=== PATIENT | female | born 1985 | race Caucasian/White ===

== ENCOUNTER 2019-12-01 17:55 | Emergency (ER) | payer OTHER ==
[2019-12-01] MEDS ORDERED: ONDANSETRON 4 MG/2 ML VIAL IVPUSH ONE (18:03)
[2019-12-01] MEDS ORDERED: SODIUM CHLORIDE 1,000 ML IV STA (18:03)
--- NOTE | 2019-12-01 18:03 | PDOC ---
Rapid Medical Evaluation Time Seen by Provider: 12/01/19 18:01 Medical Evaluation: 12/01/19 18:01 CC: vomiting and diarrhea. Denies blood in vomit or stool. PE: Abd SNTND. Orders: labs, urine Patient will proceed to ED for evaluation. Discharge Disposition - Diagnosis Vomiting and diarrhea - Referrals - Patient Instructions - Post Discharge Activity
[2019-12-01 18:26] VITALS: BP 144/92; PULSE 86; TEMP 97.8; BMI 29.9
[2019-12-01 18:55] LABS: BASO % 0.3 % (0-2.0); HEMATOCRIT 45.6 % (32.4-45.2); HEMOGLOBIN 15.3 GM/dL (10.7-15.3); LYMPH % 6.6 % (8-40); MCH 32.6 pg (25.7-33.7); MCHC 33.6 g/dl (32.0-36.0); MEAN CELL VOLUME 97.1 fl (80-96); MEAN PLT VOLUME 9.3 fl (7.5-11.1); NEUT % 90.1 % (42.8-82.8); PLATELET COUNT 259 K/MM3 (134-434); RBC 4.69 M/mm3 (3.60-5.2); RDW 14.4 % (11.6-15.6); WHITE BLOOD COUNT 8.3 K/mm3 (4.0-10.0)
[2019-12-01 19:20] LABS: EPI CELLS 7.7 /HPF (0-5/HPF); HYALINE CASTS 26 /lpf (0-8); PH,URINE 5.5 (5.0-8.0); URINE APPEARANCE CLOUDY; URINE BACTERIA 341.2 /hpf (NEGATIVE); URINE BILIRUBIN NEGATIVE (NEGATIVE); URINE COLOR YELLOW; URINE GLUCOSE (UA) NEGATIVE (NEGATIVE); URINE KETONE 2+ (NEGATIVE); URINE LEUK ESTERASE NEGATIVE (NEGATIVE); URINE NITRITE NEGATIVE (NEGATIVE); URINE PROTEIN TRACE (NEGATIVE); URINE RBC 3 /hpf (0-4); URINE UROBILINOGEN 0.2 mg/dL (0.2-1.0); URINE WBC 5 /hpf (0-5)
[2019-12-01 19:24] LABS: ALBUMIN 4.3 g/dl (3.4-5.0); BILIRUBIN,TOTAL 0.5 mg/dL (0.2-1); CALCIUM 9.3 mg/dL (8.5-10.1); CREATININE 0.9 mg/dL (0.55-1.3); POTASSIUM 3.7 mmol/L (3.5-5.1); TOT PROT 8.2 g/dl (6.4-8.2)
--- NOTE | 2019-12-01 19:30 | PDOC ---
Attending Attestation - Resident Resident Name: Melecio Sanders - ED Attending Attestation I have performed the following: I have examined & evaluated the patient, The case was reviewed & discussed with the resident, I agree w/resident's findings & plan - HPI HPI: 12/01/19 20:22 Pt ate a slice of pizza last night and states that ever since she has had vomiting and diarrhea. She has gassy abd pain. She has no fever. 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 - Physicial Exam PE: 12/01/19 20:26 No rebound and no guarding; no flank pain; no fever; no suprapubic pain; no hematuria, no hematochezia + increased gassy bowel sounds in all quadrants Pt has normal HEENT heart normal lungs clear ext normal neuro exam normal - Medical Decision Making 12/01/19 19:36 CBC chem normal; she is not ; she has + bacteria, but very few WBC and RBC and no leukocites and no dysuria. Urine will be sent for STD testing 12/01/19 20:39 Pt has ketones in the urine and she will have 2L NSS and then will be reevaluated 12/02/19 00:13 Feeling better and stable for d/c home
[2019-12-01] MEDS ORDERED: SODIUM CHLORIDE 0.9% 500 ML INFUS.BAG IV ONE (19:31)
--- NOTE | 2019-12-01 19:39 | PDOC ---
*Physical Exam - Vital Signs Last Vital Signs Temp Pulse Resp BP Pulse Ox 97.8 F 86 18 144/92 100 12/01/19 18:24 12/01/19 18:24 12/01/19 18:24 12/01/19 18:24 12/01/19 18:24 ED Treatment Course - LABORATORY CBC & Chemistry Diagram: 12/01/19 18:13 12/01/19 18:13 - ADDITIONAL ORDERS Additional order review: Laboratory Results 12/01/19 12/01/19 18:13 18:13 Sodium 137 Potassium 3.7 Chloride 103 Carbon Dioxide 27 Anion Gap 7 L BUN 19.0 H Creatinine 0.9 Est GFR (CKD-EPI)AfAm 96.01 Est GFR (CKD-EPI)NonAf 82.84 Random Glucose 98 Calcium 9.3 Total Bilirubin 0.5 AST 18 ALT 18 Alkaline Phosphatase 126 H Total Protein 8.2 Albumin 4.3 Lipase 114 Urine Color Yellow Urine Appearance Cloudy Urine pH 5.5 Ur Specific [place] 1.030 Urine Protein Trace Urine Glucose (UA) Negative Urine Ketones 2+ H Urine Blood 1+ H Urine Nitrite Negative Urine Bilirubin Negative Urine Urobilinogen 0.2 Ur Leukocyte Esterase Negative Urine WBC (Auto) 5 Urine RBC (Auto) 3 Urine Casts (Auto) 26 U Epithel Cells (Auto) 7.7 Urine Bacteria (Auto) 341.2 12/01/19 18:13 RBC 4.69 MCV 97.1 H MCHC 33.6 RDW 14.4 MPV 9.3 Neutrophils % 90.1 H Lymphocytes % 6.6 L Monocytes % 3.0 L Eosinophils % 0.0 Basophils % 0.3 Medical Decision Making - Medical Decision Making 12/01/19 19:51 34 y/o female with no significant PMHx here w/acute onset of NBNB vomiting and intermittent sharp abdominal pain that radiates from her back to her LLQ. No fevers/chills. LMP was early November. PE significant for mild LLQ TTP w/o peritoneal sign. Frontal diagnosis: nephrolithiasis/renal colic, cystitis/pyelonephritis, PID, also consider ectopic . Less likely ovarian torsion. UA shows 1+ blood, Will obtain dry CT to r/o stone. Reassess. 12/01/19 23:51 Patient improved s/p GI cocktail. Discharge as per attending. Discharge - Discharge Information Problems reviewed: Yes Clinical Impression/Diagnosis: Vomiting and diarrhea Condition: Fair Disposition: HOME - Follow up/Referral Referrals: Joy Weiss MD [Primary Care Provider] - - Patient Discharge Instructions Additional Instructions: follow up with your primary care doctor in the next 3-5 days you should have a formal gallbladder and kidney ultrasound outpatient. eat and drink as tolerated. return to the nearest emergency department if you experience: - worsening abdominal pain - bloody vomit or diarrhea - vaginal bleeding or discharge - anything that concerns you - Post Discharge Activity Work/Back to School Note: Back to Work
[2019-12-01] MEDS ORDERED: ONDANSETRON 4 MG/2 ML VIAL ONE (19:43)
[2019-12-01] MEDS ORDERED: FAMOTIDINE 20 MG/50 ML IVPB 20 MG/50 ML MG IVPB ONE ×2 (19:44→19:47)
[2019-12-01] MEDS ORDERED: ACETAMINOPHEN 1000 MG/100 ML VIAL (NON FORMULARY) IVPB ONE (19:44)
[2019-12-01] MEDS ORDERED: ACETAMINOPHEN INJECTION 100 ML IVPB ONE (19:46)
--- NOTE | 2019-12-01 19:46 | PDOC ---
History of Present Illness - General Chief Complaint: Vomiting/Diarrhea Stated Complaint: VOMITING/DIARRHEA Time Seen by Provider: 12/01/19 18:01 History Source: Patient - History of Present Illness Initial Comments: 12/05/19 06:12 34F w/o PMH LMP 10/30 presenting with nbnb vomiting and diarrhea since 6am today. PO intolerant. No sick contacts, f/c. Ate pizza last night. No recent abx or h/o abx. endorses dull intermittent flank pain with radiation down inguinal region that started 2 hours prior to exam. denies dysuria, hematuria, vaginal bleeding, vaginal discharge. Past History - Past Medical History Allergies/Adverse Reactions: Allergies Allergy/AdvReac Type Severity Reaction Status Date / Time No Known Allergies Allergy Verified 12/01/19 18:24 Home Medications: Ambulatory Orders NK [No Known Home Medication] 12/01/19 COPD: No - Psycho Social/Smoking Cessation Hx Smoking History: Never smoked Have you smoked in the past 12 months: No Information on smoking cessation initiated: No Hx Alcohol Use: No Drug/Substance Use Hx: No Review of Systems - Review of Systems Able to Perform ROS?: Yes Comments:: CONSTITUTIONAL: Denies F / C HEENT: Denies headache, lightheadedness, dizziness, changes in vision / hearing , diplopia, blurry vision, sore throat, rhinorrhea RESP: Denies SOB, cough, orthopnea, PRIETO CARD: Denies chest pain, palpitations GI: endorses N / V / D, denies abdominal pain, bloody stool : Denies dysuria, hematuria SKIN: Denies rashes NEURO: Denies numbness, tingling, weakness MSK: Denies back pain *Physical Exam - Vital Signs Last Vital Signs Temp Pulse Resp BP Pulse Ox 97.8 F 86 18 144/92 100 12/01/19 18:24 12/01/19 18:24 12/01/19 18:24 12/01/19 18:24 12/01/19 18:24 - Physical Exam GEN: Well appearing, NAD, comfortable. AAOx3. HEENT: NC/AT. No facial asymmetry. Normal voice. Supple neck w/ FROM. CV: S1/S2, RRR, no m/r/g LUNG: CTAB, no wheezes, crackles, rales, rhonchi. GI: Soft, ndnt, +BS, no guarding, no rebound. No masses. Neg CVAT b/l. MSK: 2+ distal pulses. No LE edema. No obvious deformities of all extremities. SKIN: Warm, dry, no rashes appreciated. PSYCH: Normal mood and affect. NEURO: Moving all extremities well. ED Treatment Course - LABORATORY CBC & Chemistry Diagram: 12/01/19 18:13 12/01/19 18:13 - ADDITIONAL ORDERS Additional order review: Laboratory Results 12/01/19 12/01/19 18:13 18:13 Sodium 137 Potassium 3.7 Chloride 103 Carbon Dioxide 27 Anion Gap 7 L BUN 19.0 H Creatinine 0.9 Est GFR (CKD-EPI)AfAm 96.01 Est GFR (CKD-EPI)NonAf 82.84 Random Glucose 98 Calcium 9.3 Total Bilirubin 0.5 AST 18 ALT 18 Alkaline Phosphatase 126 H Total Protein 8.2 Albumin 4.3 Lipase 114 Urine Color Yellow Urine Appearance Cloudy Urine pH 5.5 Ur Specific [place] 1.030 Urine Protein Trace Urine Glucose (UA) Negative Urine Ketones 2+ H Urine Blood 1+ H Urine Nitrite Negative Urine Bilirubin Negative Urine Urobilinogen 0.2 Ur Leukocyte Esterase Negative Urine WBC (Auto) 5 Urine RBC (Auto) 3 Urine Casts (Auto) 26 U Epithel Cells (Auto) 7.7 Urine Bacteria (Auto) 341.2 12/01/19 18:13 RBC 4.69 MCV 97.1 H MCHC 33.6 RDW 14.4 MPV 9.3 Neutrophils % 90.1 H Lymphocytes % 6.6 L Monocytes % 3.0 L Eosinophils % 0.0 Basophils % 0.3 - Medications Given in the ED: ED Medications Discontinued Medications Generic Name Dose Route Start Last Admin Trade Name Freq PRN Reason Stop Dose Admin Sodium Chloride 1,000 mls @ 1,000 mls/hr 12/01/19 18:03 12/01/19 19:42 Normal Saline - IV 12/01/19 19:02 1,000 mls/hr ASDIR STA Administration Ondansetron HCl 4 mg 12/01/19 18:03 12/01/19 19:44 Zofran Injection IVPUSH 12/01/19 18:04 4 mg ONCE ONE Administration Medical Decision Making - Medical Decision Making 12/01/19 19:45 34F w/o PMH LMP 10/30 presenting with nbnb vomiting and diarrhea since 6am today. Likely gastroenteritis; acute diarrhea illness; food poisoning. Consider stones though nontender. Consider ovarian pathology. - CBC, CMP, Pregnany - UA, UC, Gn/Ch - zofran, pain ctrl, fluids 12/01/19 21:31 pt feeling better dc home w/ callback if +Gn/Ch Discharge - Discharge Information Problems reviewed: Yes Clinical Impression/Diagnosis: Vomiting and diarrhea Condition: Fair Disposition: HOME - Admission No - Follow up/Referral Referrals: Joy Weiss MD [Primary Care Provider] - - Patient Discharge Instructions Additional Instructions: follow up with your primary care doctor in the next 3-5 days you should have a formal gallbladder and kidney ultrasound outpatient. eat and drink as tolerated. return to the nearest emergency department if you experience: - worsening abdominal pain - bloody vomit or diarrhea - vaginal bleeding or discharge - anything that concerns you - Post Discharge Activity Work/Back to School Note: Back to Work
[2019-12-01] MEDS ORDERED: MAG HYDROX/AL HYDROX/SIMETH 30 ML UNIT-DOSE CUP PO ONE (20:22)
[2019-12-01] MEDS ORDERED: MAG HYDROX/AL HYDROX/SIMETH 30 ML UNIT-DOSE CUP ONE (20:35)
== END 2019-12-01 21:46 | disposition home or self-care (01) ==
LOC: JER 17:55
PROC: 3E0337Z Introduction of Electrolytic and Water Balance Substance into Peripheral Vein, Percutaneous Approach (ICD-10-PCS; principal; 2019-12-01)
PROC: 3E033GC Introduction of Other Therapeutic Substance into Peripheral Vein, Percutaneous Approach (ICD-10-PCS; 2019-12-01)
DX: R11.10 Vomiting, unspecified (principal); R19.7 Diarrhea, unspecified
CPT/HCPCS: 36415; 80053; 81003; 83690; 84703; 85025; 87086; 87491; 87591; 96361; 96365; 96375; 99284-25; J0131; J7030

== ENCOUNTER 2022-01-24 19:06 | Emergency (ER) | payer OTHER ==
[2022-01-24 19:26] VITALS: BP 137/88; PULSE 86; TEMP 98.4; BMI 33.3
[2022-01-24] MEDS ORDERED: IBUPROFEN 600 MG TABLET (FP) PO ONE ×2 (19:56→19:57)
[2022-01-24] MEDS ORDERED: ACETAMINOPHEN 325 MG TABLET (FP) PO ONE (19:56)
[2022-01-24] MEDS ORDERED: ACETAMINOPHEN 325 MG TABLET (FP) ONE (19:57)
[2022-01-24] MEDS ORDERED: DEXAMETHASONE SOD PHOSPHATE 10 MG/1 ML VIAL PO ONE (20:33)
[2022-01-24] MEDS ORDERED: DEXAMETHASONE SOD PHOSPHATE 10 MG/1 ML VIAL ONE (20:41)
== END 2022-01-24 21:07 | disposition home or self-care (01) ==
LOC: JERFT 19:06 → JER 19:06 → JERFT 21:07
DX: J02.9 Acute pharyngitis, unspecified (principal)
CPT/HCPCS: 87651; 99283-25; J1100

== ENCOUNTER 2022-01-31 17:00 | Emergency (ER) | payer OTHER ==
[2022-01-31 17:18] VITALS: BP 146/94; PULSE 74; TEMP 97.8; BMI 32.2
[2022-01-31] MEDS ORDERED: DEXAMETHASONE SOD PHOSPHATE 10 MG/1 ML VIAL PO ONE (17:36)
[2022-01-31] MEDS ORDERED: DEXAMETHASONE SOD PHOSPHATE 10 MG/1 ML VIAL ONE (17:40)
== END 2022-01-31 17:44 | disposition home or self-care (01) ==
LOC: JERFT 17:00
DX: J30.2 Other seasonal allergic rhinitis (principal)
CPT/HCPCS: 99283-25; J1100

== ENCOUNTER 2023-01-14 15:40 | Emergency (ER) | payer BC, OTHER ==
[2023-01-14 15:56] VITALS: TEMP 98.2; BMI 31.2
[2023-01-14] MEDS ORDERED: predniSONE 20 MG TABLET (UD) PO ONE (16:36)
[2023-01-14] MEDS ORDERED: FAMOTIDINE 20 MG TABLET PO ONE (16:37)
[2023-01-14] MEDS ORDERED: diphenhydrAMINE HCL 25 MG CAPSULE (FP) PO ONE ×2 (16:37→16:41)
[2023-01-14] MEDS ORDERED: ONDANSETRON *ODT* 4 MG TABLET SL ONE (16:37)
[2023-01-14] MEDS ORDERED: ONDANSETRON 4 MG TABLET PO ONE (16:40)
[2023-01-14] MEDS ORDERED: FAMOTIDINE 20 MG TABLET ONE (16:41)
[2023-01-14] MEDS ORDERED: predniSONE 20 MG TABLET (UD) ONE (16:41)
[2023-01-14 18:03] VITALS: BP 106/85; PULSE 79; RESP 20
== END 2023-01-14 18:32 | disposition home or self-care (01) ==
LOC: JERFT 15:40 → JER 15:40 → JERFT 18:32
DX: L50.9 Urticaria, unspecified (principal)
CPT/HCPCS: 82962; 99283-25; Q0162